=== PATIENT | female | born 1975 | race Caucasian/White ===

== ENCOUNTER 2017-01-04 17:34 | Emergency (ER) | payer MEDICAID ==
[2017-01-04 18:23] VITALS: BP 158/108
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
--- NOTE | 2017-01-06 08:57 | CR ---
Right shoulder: Three views of the right shoulder were obtained. Comparison: No previous shoulder exam. Mild inferior spurring is noted within the acromioclavicular joint. Glenohumeral joint is unremarkable. No acute fracture or other bony abnormality is seen. Impression: 1. Inferior spurring within the acromioclavicular joint. 2. Right shoulder study is otherwise unremarkable. Diagnostic code #2
== END 2017-01-04 21:08 | disposition home or self-care (01) ==
LOC: JD.ED 17:34
DX: S43.91XA Sprain of unspecified parts of right shoulder girdle, initial encounter (principal); S13.9XXA Sprain of joints and ligaments of unspecified parts of neck, initial encounter; R56.9 Unspecified convulsions; F41.9 Anxiety disorder, unspecified; J45.909 Unspecified asthma, uncomplicated; F17.210 Nicotine dependence, cigarettes, uncomplicated; Z85.3 Personal history of malignant neoplasm of breast; Z90.49 Acquired absence of other specified parts of digestive tract; Z98.890 Other specified postprocedural states; Z79.899 Other long term (current) drug therapy; Z88.0 Allergy status to penicillin; Z88.2 Allergy status to sulfonamides; Z88.5 Allergy status to narcotic agent; Z88.8 Allergy status to other drugs, medicaments and biological substances; W01.198A Fall on same level from slipping, tripping and stumbling with subsequent striking against other object, initial encounter
CPT/HCPCS: 73030-26-RT; 73030-RT; 99283

== ENCOUNTER 2017-03-20 12:33 | Emergency (ER) | payer MEDICAID ==
[2017-03-20 13:16] VITALS: BP 143/95
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
== END 2017-03-20 13:46 | disposition home or self-care (01) ==
LOC: JD.ED 12:33
DX: M26.621 Arthralgia of right temporomandibular joint (principal); F17.210 Nicotine dependence, cigarettes, uncomplicated; Z88.0 Allergy status to penicillin; Z88.2 Allergy status to sulfonamides; Z88.5 Allergy status to narcotic agent; Z88.8 Allergy status to other drugs, medicaments and biological substances
CPT/HCPCS: 99283

== ENCOUNTER 2017-05-02 13:31 | Emergency (ER) | payer MEDICAID ==
[2017-05-02 13:42] VITALS: BP 133/88
[2017-05-02] MEDS ORDERED: Sodium Chloride 0.9% 10 ML Syringe FLUSH PRN (13:44)
[2017-05-02] MEDS ORDERED: Aspirin 81 MG Tab.Chew PO ONE (13:44)
[2017-05-02] MEDS ORDERED: HYDROmorphone 0.5 MG/0.5 ML Syringe IVPUSH ONE (13:46)
[2017-05-02] MEDS ORDERED: Aspirin 81 MG Tab.Chew ONE (14:31)
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
--- NOTE | 2017-05-02 15:33 | CR ---
Chest: Two views of the chest were obtained. Comparison: No prior chest x-ray. Heart size and mediastinum are normal. Lungs are clear. Surgical clips are seen from prior cholecystectomy. Minimal scoliosis is seen. Impression: 1. Incidental findings. Nothing acute is appreciated. Diagnostic code #2
== END 2017-05-02 16:50 | disposition home or self-care (01) ==
LOC: JD.ED 13:31
DX: J06.9 Acute upper respiratory infection, unspecified (principal); R07.89 Other chest pain; F41.9 Anxiety disorder, unspecified; F17.210 Nicotine dependence, cigarettes, uncomplicated; Z79.899 Other long term (current) drug therapy; Z88.0 Allergy status to penicillin; Z88.2 Allergy status to sulfonamides; Z88.5 Allergy status to narcotic agent; Z88.8 Allergy status to other drugs, medicaments and biological substances
CPT/HCPCS: 36415; 71020; 80053; 84484; 85025; 87081; 87430; 87804; 93005; 96374; 99285; A9270; J1170; J7050; 93010; 94762; 99284-25

== ENCOUNTER 2017-06-16 14:48 | Emergency (ER) | payer MEDICAID ==
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
[2017-06-16] MEDS ORDERED: Sodium Chloride 0.9% 10 ML Syringe FLUSH PRN (15:09)
[2017-06-16] MEDS ORDERED: Ondansetron 4 MG/2 ML SDV IVPUSH ONE (15:09)
[2017-06-16 16:24] VITALS: BP 126/82
[2017-06-16] MEDS ORDERED: HYDROmorphone 1 MG/ML Syringe IVPUSH ONE (16:27)
[2017-06-16] MEDS ORDERED: Ketorolac 30 MG/ML SDV IVPUSH SCH (17:15)
[2017-06-16] MEDS ORDERED: HYDROmorphone 0.5 MG/0.5 ML Syringe IVPUSH ONE (18:54)
--- NOTE | 2017-06-17 08:06 | CT ---
Head CT Technique: Multiple axial sections through the brain were obtained. Intravenous contrast was not utilized. Comparison: No previous intracranial imaging. Findings: Ventricles along with basal cisterns and sulci over the convexities are within normal limits for the patient's age. No abnormal parenchymal densities are seen. No evidence of intracranial hemorrhage. No midline shift or mass effect is seen. No acute calvarial abnormality is seen. Mild areas of mucosal thickening are seen within the ethmoid sinuses and within the frontal sinuses. No air-fluid levels are seen within the paranasal sinuses. Impression: 1. Sinus disease most likely representing mild chronic sinusitis. 2. No acute intracranial abnormality is identified. Diagnostic code #2 I agree with preliminary report issued by [facility] ([facility] preliminary report dictated on 06/16/17, 4:17 PM Central Time)
== END 2017-06-16 19:30 | disposition home or self-care (01) ==
LOC: JD.ED 14:48
DX: G43.909 Migraine, unspecified, not intractable, without status migrainosus (principal); J45.909 Unspecified asthma, uncomplicated; F17.210 Nicotine dependence, cigarettes, uncomplicated; Z88.5 Allergy status to narcotic agent; Z88.0 Allergy status to penicillin; Z88.2 Allergy status to sulfonamides; Z88.8 Allergy status to other drugs, medicaments and biological substances; Z79.899 Other long term (current) drug therapy
CPT/HCPCS: 36415; 70450; 80053; 82962; 85025; 93005; 96374; 96375; 96376; 99285; J1170; J1885; J2405; J7050

== ENCOUNTER 2017-06-20 12:31 | Emergency (ER) | payer MEDICAID ==
[2017-06-20 12:45] VITALS: BP 104/70
[2017-06-20] MEDS ORDERED: Sodium Chloride 0.9% 10 ML Syringe FLUSH PRN (13:26)
[2017-06-20] MEDS ORDERED: Sodium Chloride 0.9% 1,000 ML IV ONE (13:28)
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
--- NOTE | 2017-06-20 14:06 | CR ---
Chest: Portable view of the chest was obtained. Comparison: Prior chest x-ray of 05/02/17. Heart size and mediastinum are normal. Scoliosis is noted within the spine. Surgical clips are seen from prior cholecystectomy. Lungs are clear. Impression: 1. Incidental findings. Nothing acute is identified on portable chest x-ray. Diagnostic code #2
[2017-06-20] MEDS ORDERED: Acetaminophen 325 MG Tab PO ONE (15:28)
[2017-06-20] MEDS: Potassium Chloride 20 MEQ Tab.ER PO ONE ×2 (15:30→15:31)
--- NOTE | 2017-06-20 15:38 | MR ---
MRI brain Technique: T1 sagittal; T2, T2 FLAIR, T1 and diffusion axial; T1 FLAIR coronal images were also obtained. Findings: Mild mucosal thickening is seen within the ethmoid sinuses. Small retention cyst is felt to be present within the inferior left maxillary sinus measuring 7 mm. Normal signal void is seen within the major cerebral arteries within the skull base. No abnormal signal is seen within the brain parenchyma. No midline shift or mass effect is seen. No acute diffusion abnormalities are identified. No midline shift or mass effect is seen. Impression: 1. Mild mucosal thickening within the ethmoid sinuses as well as small retention cyst within the left maxillary sinus. 2. No additional abnormality is identified on MRI study of the brain. There is specifically no acute diffusion abnormalities being seen. Diagnostic code #2
== END 2017-06-20 16:30 | disposition home or self-care (01) ==
LOC: JD.ED 12:31 → SUPCPDRO 12:31 → JD.ED 16:30
DX: G43.909 Migraine, unspecified, not intractable, without status migrainosus (principal); F17.210 Nicotine dependence, cigarettes, uncomplicated; Z88.5 Allergy status to narcotic agent; Z88.0 Allergy status to penicillin; Z88.2 Allergy status to sulfonamides; Z88.1 Allergy status to other antibiotic agents; Z79.899 Other long term (current) drug therapy
CPT/HCPCS: 36415; 70551; 71045; 80053; 80306; 83690; 84443; 84484; 85025; 85379; 85652; 86140; 93005; 96360; 99285; G0480; J7040; J7050; 93010; 99284; A9270-GY

== ENCOUNTER 2017-07-09 15:03 | Emergency (ER) | payer MEDICAID ==
[2017-07-09 15:43] VITALS: BP 128/82
[2017-07-09] MEDS ORDERED: LORazepam 2 MG/ML MDV IM ONE (16:11)
[2017-07-09] MEDS ORDERED: Ketorolac 30 MG/ML SDV IM ONE (16:11)
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
--- NOTE | 2017-07-09 16:40 | CT ---
CT cervical spine Technique: Multiple axial sections were obtained from above C1 inferiorly to the top of T2. Reconstructed sagittal and coronal images were reviewed. Findings: Severe disc space narrowing is noted at C4-C5 and C5-C6. Posterior spurring noted at both these levels as well as anterior osteophytes. Lesser posterior and anterior osteophytes are seen at other levels. Moderate right-sided neural foraminal stenosis is noted at C4-C5. Moderate to severe left-sided neural foraminal stenosis noted at C5-C6. Vertebral body heights are preserved. No bony central canal stenosis is seen. Posterior skull base is intact. No fracture is seen. No abnormal subluxation is seen. Degenerative spurring is noted within the uncovertebral joints at C4-C5 and C5-C6. The C5-C6 level findings are worse on the left side. Impression: 1. Degenerative change as noted above. 2. Nothing acute is seen on CT study of the cervical spine. Diagnostic code #2
--- NOTE | 2017-07-10 08:49 | CR ---
Right shoulder: Three views of the right shoulder were obtained. Comparison: Previous right shoulder study of 01/04/17. Joint space narrowing and minimal inferior spurring is seen within the acromioclavicular joint. Glenohumeral joint appears within normal limits. No acute fracture or other abnormality is seen. Impression: 1. Mild degenerative change within the acromioclavicular joint which appears similar to previous study. 2. Right shoulder exam is otherwise unremarkable. Diagnostic code #1
== END 2017-07-09 17:15 | disposition home or self-care (01) ==
LOC: JD.ED 15:03
DX: S46.911A Strain of unspecified muscle, fascia and tendon at shoulder and upper arm level, right arm, initial encounter (principal); M54.2 Cervicalgia; Z88.5 Allergy status to narcotic agent; Z88.2 Allergy status to sulfonamides; Z88.8 Allergy status to other drugs, medicaments and biological substances; Z79.899 Other long term (current) drug therapy; F17.210 Nicotine dependence, cigarettes, uncomplicated; W18.2XXA Fall in (into) shower or empty bathtub, initial encounter
CPT/HCPCS: 72125; 73030; 96372; 99284; J1885; J2060; 99283

== ENCOUNTER 2017-08-03 15:24 | Emergency (ER) | payer MEDICAID ==
[2017-08-03 15:34] VITALS: BP 121/83
[2017-08-03] MEDS ORDERED: Acetaminophen/oxyCODONE 325-5 MG Tab PO ONE (16:03)
[2017-08-03] MEDS ORDERED: Ibuprofen 600 MG Tab PO ONE (16:08)
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
[2017-08-03] MEDS ORDERED: Ondansetron 4 MG Tab.DIS PO ONE (16:09)
--- NOTE | 2017-08-04 12:48 | CR ---
Right shoulder: Three views of the right shoulder were obtained. Comparison: Previous right shoulder exam of 06/14/17. Inferior spurring is identified off the acromioclavicular joint. Glenohumeral joint appears within normal limits. No fracture or other bony abnormality is seen. Impression: 1. Inferior spurring off the acromioclavicular joint. Nothing acute is seen on right shoulder study. No significant change is seen from previous study. Diagnostic code #2
== END 2017-08-03 17:50 | disposition home or self-care (01) ==
LOC: JD.ED 15:24
DX: S46.812A Strain of other muscles, fascia and tendons at shoulder and upper arm level, left arm, initial encounter (principal); F17.210 Nicotine dependence, cigarettes, uncomplicated; F41.9 Anxiety disorder, unspecified; Z79.899 Other long term (current) drug therapy; Z88.0 Allergy status to penicillin; Z88.5 Allergy status to narcotic agent; Z88.2 Allergy status to sulfonamides; Z88.8 Allergy status to other drugs, medicaments and biological substances; W01.0XXA Fall on same level from slipping, tripping and stumbling without subsequent striking against object, initial encounter
CPT/HCPCS: 73030; 99283; A9270

== ENCOUNTER 2017-08-11 13:38 | Emergency (ER) | payer MEDICAID ==
[2017-08-11 13:54] VITALS: BP 132/94
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
== END 2017-08-11 14:55 | disposition home or self-care (01) ==
LOC: JD.ED 13:38
DX: L73.9 Follicular disorder, unspecified (principal); Z88.5 Allergy status to narcotic agent; Z88.0 Allergy status to penicillin; Z88.2 Allergy status to sulfonamides; Z88.8 Allergy status to other drugs, medicaments and biological substances; Z79.899 Other long term (current) drug therapy
CPT/HCPCS: 87641; 99283